=== PATIENT | male | born 1955 | race Caucasian/White ===

== ENCOUNTER → 2024-01-04 11:35 | Outpatient (BNVA) | payer MEDICARE, SELFPAY | PROVIDERS: Referring Provider Family Medicine; Visit Provider Internal Medicine Cardiovascular Disease | DX: R07.9 Chest pain, unspecified (principal); Z86.79 Personal history of other diseases of the circulatory system; R55 Syncope and collapse; I10 Essential (primary) hypertension; E78.5 Hyperlipidemia, unspecified; I44.7 Left bundle-branch block, unspecified; R94.31 Abnormal electrocardiogram [ECG] [EKG] | CPT/HCPCS: 36415; 80048; 83880; 93005; 99205 ==

== ENCOUNTER 2024-01-24 10:23 | Outpatient (CLI) | payer MEDICARE, OTHER, SELFPAY ==
[2024-01-24 11:11] LABS: Anion Gap 18.5 (5-19); Blood Urea Nitrogen 12 mg/dL (8-23); Calcium 9.2 mg/dL (8.5-10.5); Carbon Dioxide 23 mmol/L (22-29); Chloride 103 mmol/L (98-107); Glomerular Filtration Rate 74.3 mL/min (90-130); Glucose 274 mg/dL (65-115); NT Pro B Type Natriuretic Pept 1039 pg/mL (0-125); Osmolality Calculated 300 mOsm/kg (285-295); Potassium 4.5 mmol/L (3.5-5.1); Sodium 140 mmol/L (136-145)
== END 2024-01-24 10:24 | disposition home or self-care (01) ==
LOC: LAB 10:28
PROVIDERS: PCP Family Medicine; Visit Provider Internal Medicine Cardiovascular Disease
DX: I25.10 Atherosclerotic heart disease of native coronary artery without angina pectoris (principal); Z86.79 Personal history of other diseases of the circulatory system; I10 Essential (primary) hypertension
CPT/HCPCS: 36415; 80048; 83880

== ENCOUNTER 2024-01-26 09:45 | Outpatient (CLI) | payer MEDICARE, OTHER, SELFPAY ==
--- NOTE | 2024-01-26 10:30 | USCV_ITS ---
Leon Mendez Age: 68 Gender: M : 1955 Exam Date: 01/26/2024 10:18 Ordering Phys: Estevan Barrera MD ([email or web address]) Technologist: Gabriel Carter Exam Location: [facility] [place] Indication: cardiomyopathy BP: 120 / 70 HR: 63 Rhythm: Sinus Technical Quality: Adequate MEASUREMENTS (Male / Female) Normal Values 2D ECHO LV Diastolic Diameter PLAX 6.4 cm 4.2 - 5.9 / 3.9 - 5.3 cm IVS Diastolic Thickness 1.2 cm 0.6 - 1.0 / 0.6 - 0.9 cm IVS Systolic Thickness 1.5 cm LVPW Diastolic Thickness 1.7 cm 0.6 - 1.0 / 0.6 - 0.9 cm LVPW Systolic Thickness 1.9 cm LV Ejection Fraction 2D Teich 36.9 % LV Ejection Fraction MOD 4C 39.3 % LV Ejection Fraction MOD 2C 24.2 % LV Ejection Fraction 2C AL 26.1 % LA Diameter 4.4 cm RA Systolic Volume 4C AL 22.7 ml RA Systolic Volume 4C MOD 22.6 ml LA Sys Volume AL 61.9 cm cubed LA Sys Volume Index AL 28.8 cm cubed/m squared Aorta at Sinotubular Diameter 2.1 cm IVC Diameter 1.9 cm M-MODE LA Ao Ratio MM 1.2 AV Cusp Separation MM 2.2 cm DOPPLER AV Peak Velocity 130.7 cm/s LVOT Peak Velocity 76.0 cm/s MV Peak Velocity 100.0 cm/s MV Area PHT 6.3 cm squared Mitral E to A Ratio 1.0 PV Peak Velocity 74.0 cm/s RV Ejection Time 0.3 s FINDINGS Left Ventricle Left ventricle is dilated. LV systolic function has severely reduced with EF of 25 to 30%. Severe global hypokinesis. Grade 1 diastolic dysfunction. Right Ventricle Normal in size and function Right Atrium Normal in size Left Atrium Normal in size Mitral Valve Mitral valve is thickened. Trace mitral regurgitation. Aortic Valve Aortic valve is thickened. No significant stenosis Tricuspid Valve Insufficient TR jet to evaluate RVSP. Pulmonic Valve Trace pulmonic regurgitation Pericardium Normal Aorta Normal in size IVC Not well visualized CONCLUSIONS Left ventricle is dilated. LV systolic function is severely reduced with EF of 25 to 30%. Grade 1 diastolic dysfunction Trace mitral regurgitation Trace pulmonary regurgitation No comparison studies are available. Mau Irene MD (Electronically Signed) Final Date: 09 February 2024 21:29 S
== END 2024-01-26 09:46 | disposition home or self-care (01) ==
LOC: RAD 09:46
PROVIDERS: PCP Family Medicine; Visit Provider Internal Medicine Cardiovascular Disease
DX: I50.20 Unspecified systolic (congestive) heart failure (principal); I50.30 Unspecified diastolic (congestive) heart failure; I34.81 Nonrheumatic mitral (valve) annulus calcification; I35.0 Nonrheumatic aortic (valve) stenosis; I51.89 Other ill-defined heart diseases; R06.09 Other forms of dyspnea
CPT/HCPCS: 93306

== ENCOUNTER → 2024-03-21 10:02 | Outpatient (BNVA) | payer MEDICARE, OTHER, SELFPAY | PROVIDERS: PCP Family Medicine; Visit Provider Nurse Practitioner Family | DX: I50.22 Chronic systolic (congestive) heart failure (principal) | CPT/HCPCS: 99213 ==

== ENCOUNTER → 2024-04-10 09:29 | Outpatient (BNVA) | payer MEDICARE, OTHER, SELFPAY | PROVIDERS: PCP Family Medicine; Visit Provider Internal Medicine Cardiovascular Disease | DX: I25.10 Atherosclerotic heart disease of native coronary artery without angina pectoris (principal); I10 Essential (primary) hypertension; E78.5 Hyperlipidemia, unspecified; I42.9 Cardiomyopathy, unspecified | CPT/HCPCS: 99214 ==

== ENCOUNTER 2024-04-17 08:35 | Inpatient (IN) | payer MEDICARE, OTHER, SELFPAY ==
[2024-04-17] VITALS (21 sets, daily range): BP systolic 113–155; BP diastolic 65–88; PULSE 61–76; RESP 14–25; TEMP 36.4–36.8; O2SAT 93–100; BMI 27.8; BMI 26.8
--- NOTE | 2024-04-17 08:44 | XRR_ITS ---
PROCEDURE INFORMATION: Exam: XR Chest Exam date and time: 04/17/2024 8:48 AM Age: 68 years old Clinical indication: Shortness of breath; Additional info: Weakness TECHNIQUE: Imaging protocol: Radiologic exam of the chest. Views: 1 view. COMPARISON: No relevant prior studies available. FINDINGS: Lungs: Unremarkable. No consolidation. Pleural spaces: Unremarkable. No pleural effusion. No pneumothorax. Heart/Mediastinum: Unremarkable. No cardiomegaly. Bones/joints: Unremarkable. XR/XR chest 1V portable [id number] IMPRESSION: No acute findings.
--- NOTE | 2024-04-17 08:44 | W.ED.DIZZY ---
HPI - Dizziness General: Chief Complaint: Weakness Stated Complaint: DIZZY, WEAKNESS Time Seen by Provider: 04/17/24 08:37 History of Present Illness: HPI Narrative: 68-year-old male presents emergency planing dizziness weakness burning in his chest began while he was sitting he had not done anything active. He has a history of a left bundle branch block no known history of coronary artery disease does have some reported congestive heart failure. He states he got very dizzy and weak. Patient is diabetic blood sugar at the scene was 314 he recently stopped metformin and started Farxiga. During exam he was noted to have increased lightheadedness dizziness when he sat up. He has not had any episodes of vomiting he has no true vertigo. Associated symptoms: Reports chest pain; Denies chills Related Data Home Medications Medication Instructions Recorded Confirmed aspirin 81 mg tablet,delayed 81 mg PO DAILY 01/04/24 04/17/24 release metoprolol succinate 25 mg 25 mg PO DAILY 01/04/24 04/17/24 tablet,extended release 24 hr tamsulosin 0.4 mg capsule 0.4 mg PO DAILY 01/04/24 04/17/24 dapagliflozin propanediol 5 mg 5 mg PO DAILY 03/21/24 04/17/24 tablet (Farxiga) evolocumab 140 mg/mL subcutaneous 1 mg SUBCUT Q14D 04/17/24 04/17/24 pen injector (Vaibhav Crane) lisinopril 2.5 mg tablet 2.5 mg PO DAILY 04/17/24 04/17/24 omeprazole 40 mg capsule,delayed 40 mg PO DAILY 04/17/24 04/17/24 release Previous Rx's Medication Instructions Recorded spironolactone 25 mg tablet 25 mg PO DAILY #30 tabs 02/20/24 sacubitril 24 mg-valsartan 26 mg 1 tab PO BID #60 tabs 03/04/24 tablet (Entresto) valsartan 40 mg tablet 40 mg PO DAILY till yuou get the 04/12/24 entresto. dont Stop lisinopril #30 tabs Allergies Allergy/AdvReac Type Severity Reaction Status Date / Time No Known Allergies Allergy Verified 03/21/24 10:26 Review of Systems Const: Denies: fever(s) or chills Card: Reports: chest pain; Denies: edema or swelling of feet/ankles Resp: Denies: dyspnea GI: Denies: abdominal pain : Denies: dysuria, urinary frequency or urinary urgency Musc: Denies: neck pain or back pain Skin/Breast: Denies: rash Neuro: Reports: dizziness [facility] PFSH: Medical History Systolic CHF 01/26/2024: LVEF 25 to 30% Family History Mother Congestive heart failure (CHF) Other Diabetes mellitus type 1 Heart disease Denies family history of CAD (coronary artery disease) Anemia Aneurysm Arrhythmia Hyperlipidemia Congenital heart disease Carotid artery disease Hypertension Cardiomyopathy Social History Smoking and tobacco/nicotine status: never used tobacco/nicotine Physical Exam Const: GENERAL APPEARANCE: cooperative ORIENTATION/CONSCIOUSNESS: Yes awake, Yes oriented to person, Yes oriented to place and Yes oriented to time HENMT: COMMON NORMALS: normocephalic, atraumatic and hearing grossly normal bilaterally HEAD & SCALP: normocephalic and atraumatic Resp: COMMON NORMALS: normal respiratory effort, No retractions, No use of accessory muscles and clear to auscultation bilaterally AUSCULTATION: clear to auscultation bilaterally Cardio: COMMON NORMALS: regular rate, regular rhythm and No murmurs present (Cardio) RATE: regular rate RHYTHM: regular rhythm GI: COMMON NORMALS: Soft to palpation and No hepatosplenomegaly present AUSCULTATION: Yes normoactive bowel sounds PALPATION: Yes Soft to palpation, No Tenderness to palpation present (GI), No Guarding due to palpation present (GI) and Yes No hepatosplenomegaly present Extremity: COMMON NORMALS: normal to inspection, capillary refill normal, no clubbing, cyanosis or edema, no calf tenderness and no pedal edema Neuro: SENSORIUM/ORIENTATION: Yes oriented to person, Yes oriented to place and Yes oriented to time Skin: COMMON NORMALS: no rashes or lesions noted GENERAL SKIN EXAM: no rashes or lesions noted Course Vital Signs: Vital signs: Vital Signs Temperature 97.6 F 04/17/24 08:37 Pulse Rate 68 04/17/24 15:21 Respiratory Rate 14 04/17/24 13:00 Blood Pressure 154/88 04/17/24 15:21 Pulse Oximetry 96 04/17/24 15:21 Oxygen Delivery Me thod Room Air 04/17/24 08:37 MDM - Dizziness Medical Decision Making Patient's blood pressure is elevated in first arrived. He has pretty significant global hypokinesis he was switching from MEME inhibitor to anastrozole. He had a slight bump in his troponin. We consulted hospitalist and surgical oncologist. Initially after evaluating cardiology had thought possibly treating him as an outpatient. After further discussion with the hospitalist will place patient on observation and adjust medications follow out troponins. Discussed Dr. Peacock orders written Medical Records I reviewed the patient's medical records. Lab Data I reviewed the patient's lab results. 04/17/24 10:08 04/17/24 10:08 Radiology Impressions Chest X-Ray 04/17/24 08:44 IMPRESSION: No acute findings. Laboratory Results WBC 8.01 10^3/uL (3.29-11.43) 04/17/24 10:08 RBC 4.88 10^6/uL (3.85-5.65) 04/17/24 10:08 Hgb 14.50 g/dL (11.27-16.99) 04/17/24 10:08 Hct 43.7 % (37-53) 04/17/24 10:08 MCV 89.5 fl (82-101) 04/17/24 10:08 MCH 29.7 pg (27-33) 04/17/24 10:08 MCHC 33.2 g/dL (30-55) 04/17/24 10:08 RDW 12.3 % (12.1-15.1) 04/17/24 10:08 Plt Count 195 10^3/cmm (157-399) 04/17/24 10:08 MPV 12.2 fL (7.4-10.4) H 04/17/24 10:08 Neut % (Auto) 66.5 % 04/17/24 10:08 Lymph % (Auto) 24.7 % 04/17/24 10:08 [place] % (Auto) 7.2 % 04/17/24 10:08 Eos % (Auto) 0.7 % 04/17/24 10:08 Baso % (Auto) 0.5 % 04/17/24 10:08 Neut # (Auto) 5.32 10^3/uL (1.8-7.7) 04/17/24 10:08 Lymph # (Auto) 2.0 10^3/uL (0.8-4.8) 04/17/24 10:08 [place] # (Auto) 0.6 10^3/uL (0.2-0.9) 04/17/24 10:08 Eos # (Auto) 0.1 10^3/uL (0.0-0.8) 04/17/24 10:08 Baso # (Auto) 0.0 10^3/uL (0.0-0.1) 04/17/24 10:08 Nucleated RBC % (auto) 0 % 04/17/24 10:08 Nucleated RBCs # 0.0 /100WBC 04/17/24 10:08 D-Dimer 1.28 ug/mLFEU (0-0.59) H 04/17/24 10:08 Sodium 136 mmol/L (136-145) 04/17/24 10:08 Potassium 4.2 mmol/L (3.5-5.1) 04/17/24 10:08 Chloride 101 mmol/L (98-107) 04/17/24 10:08 Carbon Dioxide 23 mmol/L (22-29) 04/17/24 10:08 Anion Gap 16.2 (5-19) 04/17/24 10:08 BUN 15 mg/dL (8-23) 04/17/24 10:08 Creatinine 0.9 mg/dL (0.7-1.2) 04/17/24 10:08 GFR Calculation 83.9 mL/min (90-130) L 04/17/24 10:08 Glucose 177 mg/dL (65-115) H 04/17/24 10:08 Calculated Osmolality 287 mOsm/kg (285-295) 04/17/24 10:08 Calcium 9.0 mg/dL (8.5-10.5) 04/17/24 10:08 Total Bilirubin 0.6 mg/dL (0.15-1.2) 04/17/24 10:08 AST 15 U/L (0-40) 04/17/24 10:08 ALT 25 U/L (0-41) 04/17/24 10:08 Alkaline Phosphatase 82 U/L (40-130) 04/17/24 10:08 Troponin T Baseline 23 ng/L (0-15) H 04/17/24 10:08 Troponin T 120 Minute 28.29 ng/L (0-15) H 04/17/24 12:14 Delta Troponin T 5.29 ABS# (0-10) 04/17/24 12:14 Total Protein 6.6 g/dL (6.6-8.7) 04/17/24 10:08 Albumin 4.3 g/dL (3.5-5.2) 04/17/24 10:08 Globulin 2.3 g/dL (1.3-4.6) 04/17/24 10:08 Procalcitonin 0.05 ng/mL (0-0.5) 04/17/24 10:08 Urine Color Yellow (Yellow) 04/17/24 10:20 Urine Appearance Clear (CLEAR) 04/17/24 10:20 Urine pH 7.0 (5-7) 04/17/24 10:20 Ur Specific [place] 1.024 (1.005-1.030) 04/17/24 10:20 Urine Protein Negative (Negative) 04/17/24 10:20 Urine Glucose (UA) 3+ (Normal) H 04/17/24 10:20 Urine Ketones Negative (Negative) 04/17/24 10:20 Urine Blood Negative (Negative) 04/17/24 10:20 Urine Nitrate Negative (Negative) 04/17/24 10:20 Urine Bilirubin Negative (Negative) 04/17/24 10:20 Urine Urobilinogen 0.2 mg/dL (Negative) 04/17/24 10:20 Ur Leukocyte Esterase Negative (Negative) 04/17/24 10:20 Amorphous Sediment Not Reportable 04/17/24 10:20 All radiology interpretation(s) finalized by discharge Discharge Plan Discharge Patient Disposition: Admitted As Inpatient Admit Provider: Lucio Peacock Clinical Impression: Unstable angina, Systolic CHF, History of ischemic cardiomyopathy, Hypertension Condition: Stable Coding Level of Care Code ED [employer] Operator for Thais Delaney
--- NOTE | 2024-04-17 08:47 | ECG_ITS ---
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 Measurements Intervals [place] Rate: 73 P: 21 [place]: 167 QRS: 28 QRSD: 157 T: 204 QT: 438 QTc: 485 Interpretive Statements SINUS RHYTHM WITH OCCASIONAL VENTRICULAR PREMATURE COMPLEXES Compared to ECG 01/04/2024 11:39:09 Ventricular premature complex(es) now present Electronically Signed On 04-17-2024 16:57:48 CDT by Spencer Borjas M.D. [id number]
[2024-04-17 10:28] LABS: Add Urine Microscopic? NO
[2024-04-17 10:34] LABS: Bilirubin Urine Negative (Negative); Blood Urine Negative (Negative); Glucose Urine UA 3+ (Normal); Ketones Urine Negative (Negative); Leukocyte Esterase Urine Negative (Negative); Nitrate Urine Negative (Negative); Protein Urine Negative (Negative); Specific Gravity, Urine 1.024 (1.005-1.030); Urine Appearance Clear (CLEAR); Urine Color Yellow (Yellow); Urobilinogen Urine 0.2 mg/dL (Negative)
[2024-04-17 10:36] LABS: Add Urine Culture? No; Charge for UA Resulting for Rev
[2024-04-17 10:50] LABS: Basophils % 0.5 %; Eosinophils # 0.1 10^3/uL (0.0-0.8); Eosinophils % 0.7 %; Hematocrit 43.7 % (37-53); Lymphocytes % 24.7 %; Mean Corpuscular HGB Conc 33.2 g/dL (30-55); Mean Corpuscular Hemoglobin 29.7 pg (27-33); Mean Corpuscular Volume 89.5 fl (82-101); Mean Platelet Volume 12.2 fL (7.4-10.4); Monocytes # 0.6 10^3/uL (0.2-0.9); Monocytes % 7.2 %; Neutrophils # 5.32 10^3/uL (1.8-7.7); Neutrophils % 66.5 %; Nucleated Red Blood Cells % 0 %; Platelet Count 195 10^3/cmm (157-399); Red Blood Count 4.88 10^6/uL (3.85-5.65); Red Cell Distribution Width 12.3 % (12.1-15.1); White Blood Count 8.01 10^3/uL (3.29-11.43)
--- NOTE | 2024-04-17 10:52 | ECG_ITS ---
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 Measurements Intervals [place] Rate: 66 P: 12 [place]: 175 QRS: 7 QRSD: 158 T: 190 QT: 463 QTc: 487 Interpretive Statements SINUS RHYTHM POSSIBLE LEFT ATRIAL ENLARGEMENT [-0.1mV P-WAVE IN V1/V2] LEFT BUNDLE BRANCH BLOCK [120+ ms QRS DURATION, 80+ ms Q/S IN V1/V2, 85+ ms R IN I/aVL/V5/V6] Compared to ECG 04/17/2024 08:47:01 Ventricular premature complex(es) no longer present Electronically Signed On 04-17-2024 17:02:53 CDT by Spencer Borjas M.D. [id number]
[2024-04-17 11:13] LABS: Alanine Aminotransferase 25 U/L (0-41); Albumin Level 4.3 g/dL (3.5-5.2); Alkaline Phosphatase 82 U/L (40-130); Anion Gap 16.2 (5-19); Aspartate Amino Transferase 15 U/L (0-40); Blood Urea Nitrogen 15 mg/dL (8-23); Carbon Dioxide 23 mmol/L (22-29); Chloride 101 mmol/L (98-107); Creatinine Clr Calc Pharmacy 90.5191; Globulin 2.3 g/dL (1.3-4.6); Glomerular Filtration Rate 83.9 mL/min (90-130); Glucose 177 mg/dL (65-115); Osmolality Calculated 287 mOsm/kg (285-295); Potassium 4.2 mmol/L (3.5-5.1); Sodium 136 mmol/L (136-145); Total Bilirubin 0.6 mg/dL (0.15-1.2); Total Protein 6.6 g/dL (6.6-8.7); Troponin(5th) Baseline 23 ng/L (0-15)
[2024-04-17 13:02] LABS: Troponin 5 2HR 28.29 ng/L (0-15); Troponin 5 2HR Delta 5.29 ABS# (0-10)
--- NOTE | 2024-04-17 14:00 | P.HP_ITS ---
Providers/Chief Complaint 2 Primary Care Provider: Elvin Romero MD Chief Complaint: DIZZY, WEAKNESS History of Present Illness Leon Mendez is a 68 year old male with past medical history of ischemic cardiomyopathy with EF 25 to 30%, CAD with concerns for silent [place] in the past, last cardiac angiogram 2 years ago at outside hospital with the possibility of ARTIST COLOR SEPARATION with collaterals to one of the blood vessels(records from out side is not currently available) who follows up with Dr. Barrera presents to the ER today because of retrosternal burning chest pain which lasted for 30 minutes prior to arrival to the ER. Symptoms are not associated with nausea, vomiting, nonradiating associated with mild diaphoresis. After the patient he was being transition from lisinopril to Entresto and yesterday was the first day he did not take his lisinopril. On arrival to the ER his blood pressure was found to be slightly elevated up to 150 systolics, delta troponin of 5 in 2 hours. Cardiology was consulted and medicine was requested for admission with concerns for non-ST elevation [place]. Review of Systems 2 General: Reports: 10 or more systems reviewed and unremarkable except in HPI and below Const: Denies: fever(s), chills, body aches, change in appetite, change in weight, malaise, night sweats, diaphoresis, change in sleep pattern, daytime sleepiness or snoring Eyes: Denies: change in vision, blurry vision, photophobia, eye discomfort or eye discharge ENMT: Denies: throat pain, enlarged tonsils, hoarseness, mouth pain, oral sores, dry mouth, tinnitus, nasal congestion or post nasal drip Card: Denies: chest pain, palpitations, irregular heart rhythm, edema, swelling of feet/ankles, lightheadedness, syncope, pre-syncope, dyspnea on exertion, orthopnea, leg pain with exertion or acrocyanosis Resp: Denies: dyspnea, productive cough, non-productive cough, wheezing, stridor, pain on inspiration, change in phlegm color, hemoptysis or chest congestion GI: Denies: abdominal pain, nausea, vomiting, hematemesis, coffee ground emesis, dysphagia, heartburn, diarrhea, constipation, bloating, GI cramping, change in bowel habits, pain on defecation, hematochezia or melena : Denies: flank pain, difficulty urinating, dysuria, urinary frequency, urinary urgency, urinary hesitancy, urinary dribbling, difficulty starting urination, change in urine stream, nocturia or hematuria Musc: Denies: neck pain, back pain, extremity pain, joint pain, joint swelling, joint redness, joint stiffness or limited range of motion Neuro: Denies: headache(s), numbness in extremities, weakness in extremities, sensory changes, lack of coordination, difficulty walking, frequent falls, dizziness, vertigo, confusion, Slurred speech present, difficulty communicating thoughts or seizure-like activity Psych: Denies: anxiety, depression, mood swings, panic attacks, hopelessness or irritability Endo: Denies: polyuria, polydipsia, tired all the time, cold intolerance, excessive sweating, flushing or heat intolerance [place]/Lymph: Denies: easy bruising or easy bleeding All/Imm: Denies: tongue swelling, facial swelling or acute wheezing Medications/Allergies Home Medications Medication Instructions Recorded Confirmed Last Taken Type aspirin 81 mg tablet,delayed 81 mg PO DAILY 01/04/24 04/17/24 Unknown History release metoprolol succinate 25 mg 25 mg PO DAILY 01/04/24 04/17/24 Unknown History tablet,extended release 24 hr tamsulosin 0.4 mg capsule 0.4 mg PO DAILY 01/04/24 04/17/24 Unknown History spironolactone 25 mg tablet 25 mg PO DAILY #30 tabs 02/20/24 04/17/24 Unknown Rx sacubitril 24 mg-valsartan 26 mg 1 tab PO BID #60 tabs 03/04/24 04/17/24 Unknown Rx tablet (Entresto) dapagliflozin propanediol 5 mg 5 mg PO DAILY 03/21/24 04/17/24 Unknown History tablet (Farxiga) valsartan 40 mg tablet 40 mg PO DAILY till yuou get the 04/12/24 04/17/24 Unknown Rx entresto. dont Stop lisinopril #30 tabs evolocumab 140 mg/mL subcutaneous 1 mg SUBCUT Q14D 04/17/24 04/17/24 Unknown History pen injector (Vaibhav Crane) lisinopril 2.5 mg tablet 2.5 mg PO DAILY 04/17/24 04/17/24 Unknown History omeprazole 40 mg capsule,delayed 40 mg PO DAILY 04/17/24 04/17/24 Unknown History release Allergies Allergy/AdvReac Type Severity Reaction Status Date / Time No Known Allergies Allergy Verified 03/21/24 10:26 PFSH Acute 2 PFSH: Medical History Systolic CHF 01/26/2024: LVEF 25 to 30% Family History Mother Congestive heart failure (CHF) Other Diabetes mellitus type 1 Heart disease Denies family history of CAD (coronary artery disease) Anemia Aneurysm Arrhythmia Hyperlipidemia Congenital heart disease Carotid artery disease Hypertension Cardiomyopathy Social History Smoking and tobacco/nicotine status: never used tobacco/nicotine Vitals/I&O/Wt Last Vital Signs Temp 97.6 F 04/17/24 08:37 Pulse 68 04/17/24 12:00 Resp 20 H 04/17/24 12:00 BP 136/82 04/17/24 12:00 Pulse Ox 97 04/17/24 12:00 O2 Del Method Room Air 04/17/24 08:37 Weight last 48 hrs Weight 90.718 kg Physical Exam 2 Narrative: General: No acute distress, AO x3 HEENT: PERRLA, pupils bilaterally equal and reactive Chest: Normal vesicular breath sounds, no added sounds, equal good air entry bilaterally CVS: S1-S2 regular, no murmurs, no tachycardia, no gallops, no rubs Abdomen: Soft, nontender, no organomegaly, bowel sounds present Neuro: No focal deficits, no facial deformity, AO x3, power 5/5 in all limbs Data 04/17/24 10:08 04/17/24 10:08 A&P Assessment and plan (1) Unstable angina: Monitor for chest pain. Concerns for atypical chest pain. Cycle troponin. Continue with aspirin, statin. Check A1c, lipid panel. Last echocardiogram from January 2024 showed an EF of 2530% with grade 1 diastolic dysfunction with trace MR. Appreciate cardiology recommendations. No plan for cardiac angiogram or heparin drip for now. (2) History of ischemic cardiomyopathy: Last echocardiogram as above. No clinical symptoms of congestive heart failure for now. Continue with home dose of metoprolol, spironolactone. Was recently told by his outpatient access control specialist to hold lisinopril for 3 days and transition over to Entresto. As per cardiology team can restart MEME inhibitor while being in the hospital at current dose and transition over to Entresto once available to him as an outpatient without waiting for 3 days as his blood pressures is on the higher side and his creatinine is stable at 1. (3) Systolic CHF: Qualifiers: Heart failure chronicity: chronic Qualified Code(s): I50.22 - Chronic systolic (congestive) heart failure (4) Atherosclerosis of coronary artery of [place] heart without angina pectoris: Qualifiers: Coronary Disease-Associated Artery/Lesion type: [place] artery Qualified Code(s): I25.10 - Atherosclerotic heart disease of [place] coronary artery without angina pectoris (5) Hypertension: Goal blood pressure less than 140/90 mmHg. Continue with home dose of metoprolol, spironolactone, MEME inhibitor. Will uptitrate as for goal blood pressure. Qualifiers: Hypertension type: primary hypertension Qualified Code(s): I10 - Essential (primary) hypertension Plan Type 2 diabetes mellitus: Check A1c. Hold off on home dose of Farxiga. Insulin sliding scale low-dose protocol. Full code Cardiac carb consistent diet Protonix OPD prophylaxis Heparin 5000 every 12 hourly for DVT prophylaxis Attestations 2 Medical Necessity Statement*: Admit under observation for management and evaluation for chest pain in a patient with history of CAD, ischemic cardiomyopathy with a EF of 30% Diagnoses Unstable angina I20.0 History of ischemic cardiomyopathy Z86.79 Chronic systolic congestive heart failure I50.22 Heart failure chronicity: chronic Atherosclerosis of [place] coronary artery of [place] heart without angina pectoris I25.10 Coronary Disease-Associated Artery/Lesion type: [place] artery Primary hypertension I10 Hypertension type: primary hypertension
[2024-04-17 14:26] LABS: Procalcitonin 0.05 ng/mL (0-0.5)
[2024-04-17 14:27] LABS: D Dimer 1.28 ug/mLFEU (0-0.59)
--- NOTE | 2024-04-17 14:44 | ECG_ITS ---
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 Measurements Intervals [place] Rate: 55 P: 19 [place]: 174 QRS: 17 QRSD: 162 T: 206 QT: 472 QTc: 455 Interpretive Statements SINUS BRADYCARDIA POSSIBLE LEFT ATRIAL ENLARGEMENT [-0.1mV P-WAVE IN V1/V2] LEFT BUNDLE BRANCH BLOCK [120+ ms QRS DURATION, 80+ ms Q/S IN V1/V2, 85+ ms R IN I/aVL/V5/V6] Compared to ECG 04/17/2024 10:52:05 No change Electronically Signed On 04-17-2024 17:02:21 CDT by Spencer Borjas M.D. [email or web address]
--- NOTE | 2024-04-17 14:54 | P.CONIM_ITS ---
Providers/Reason For Consult 2 Consulting Physician/Specialty*: Cardiology/Dr. Borjas Reason for Consult*: Elevated blood pressure, chest pain, minimally elevated troponin Requesting Physician: Dr. Timmons Attending Physician: Lucio Peacock MD Primary Care Provider: Elvin Romero MD History of Present Illness History of Present Illness Leon Mendez is a 68 year old male with a known history of hypertension, known left bundle branch block and low LVEF 30% with global hypokinesis, presented to the ER with onset of dizziness, with vague chest pain in the setting of markedly elevated blood pressure. Patient was in the process of switching his antihypertensive medication from lisinopril to Entresto. He stopped lisinopril for couple of days and has not taken the Entresto yet. This led to markedly elevated blood pressure systolic 180-190, and as a result he felt a dizziness, weakness and some vague chest pain. On arrival to the ER his blood pressure was markedly elevated 190/105. EKG showed old left bundle branch block. The cardiac troponin enzymes are minimally elevated. Currently he is a chest pain-free. He is resting comfortably. No shortness of air. Blood pressure is now better after medication. Currently his blood pressure is 145/94. Clinically no signs symptoms suggestive of heart failure. Reviewed his lab data, normal creatinine. Review of Systems 2 Narrative: Detailed 10 point systemic review unremarkable except for as mentioned above in the history of present illness. He has a decent exercise tolerance. Medications/Allergies Home Medications Medication Instructions Recorded Confirmed Last Taken Type aspirin 81 mg tablet,delayed 81 mg PO DAILY 01/04/24 04/17/24 Unknown History release metoprolol succinate 25 mg 25 mg PO DAILY 01/04/24 04/17/24 Unknown History tablet,extended release 24 hr tamsulosin 0.4 mg capsule 0.4 mg PO DAILY 01/04/24 04/17/24 Unknown History spironolactone 25 mg tablet 25 mg PO DAILY #30 tabs 02/20/24 04/17/24 Unknown Rx sacubitril 24 mg-valsartan 26 mg 1 tab PO BID #60 tabs 03/04/24 04/17/24 Unknown Rx tablet (Entresto) dapagliflozin propanediol 5 mg 5 mg PO DAILY 03/21/24 04/17/24 Unknown History tablet (Farxiga) valsartan 40 mg tablet 40 mg PO DAILY till yuou get the 04/12/24 04/17/24 Unknown Rx entresto. dont Stop lisinopril #30 tabs evolocumab 140 mg/mL subcutaneous 1 mg SUBCUT Q14D 04/17/24 04/17/24 Unknown History pen injector (Vaibhav Crane) lisinopril 2.5 mg tablet 2.5 mg PO DAILY 04/17/24 04/17/24 Unknown History omeprazole 40 mg capsule,delayed 40 mg PO DAILY 04/17/24 04/17/24 Unknown History release Allergies Allergy/AdvReac Type Severity Reaction Status Date / Time No Known Allergies Allergy Verified 03/21/24 10:26 PFSH Acute 2 PFSH: Medical History Systolic CHF 01/26/2024: LVEF 25 to 30% Family History Mother Congestive heart failure (CHF) Other Diabetes mellitus type 1 Heart disease Denies family history of CAD (coronary artery disease) Anemia Aneurysm Arrhythmia Hyperlipidemia Congenital heart disease Carotid artery disease Hypertension Cardiomyopathy Social History Smoking and tobacco/nicotine status: never used tobacco/nicotine Vitals/I&O/Wt Last Vital Signs Temp 97.6 F 04/17/24 08:37 Pulse 74 04/17/24 13:00 Resp 14 04/17/24 13:00 BP 144/81 04/17/24 13:30 Pulse Ox 98 04/17/24 13:00 O2 Del Method Room Air 04/17/24 08:37 Weight last 48 hrs Weight 200 lb Physical Exam 2 Narrative: Patient laying comfortably. No respiratory distress. Const: COMMON NORMALS: no acute distress, average body habitus, patient oriented x3 and alert HENMT: COMMON NORMALS: normocephalic HEAD & SCALP: normocephalic OTHER: Unremarkable. Chest: COMMONS NORMALS: normal inspection of the chest and normal palpation of entire chest wall OTHER: Unremarkable. Resp: OTHER: Good air entry bilaterally. No added sounds. Cardio: OTHER: Normal first and second heart sounds. No added sounds. No JVD. GI: OTHER: Abdominal soft nontender. Bowel sounds audible. Extremity: OTHER: Normal lower extremities. No pedal edema. Distal pulses palpable. Neuro: COMMON NORMALS: patient oriented x3 SENSORIUM/ORIENTATION: Yes alert OTHER: Grossly intact. Skin: OTHER: Skin warm and dry. Data 04/17/24 10:08 04/17/24 10:08 A&P Assessment and plan (1) Hypertension: 68-year-old male patient with a known hypertension, cardiomyopathy LVEF of 25 to 30% presented with symptomatic elevated blood pressure. Clinically no angina. The vague chest pain symptoms and dizziness were related to markedly elevated blood pressure. Clinically no heart failure symptoms. He is euvolemic. The minimally elevated cardiac troponin is as a result of known cardiomyopathy and markedly elevated blood pressure. Clinically it is less likely to be acute MO. Plan: Restart his routine medication including antihypertensive. Patient was recently advised to start Entresto for cardiomyopathy which he has not yet. Recommend to start on Entresto from today. Patient can be observed overnight in the hospital after starting the medication. If he remains stable he can be discharged today with plan of follow-up with Dr. 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 Qualifiers: Hypertension type: primary hypertension Qualified Code(s): I10 - Essential (primary) hypertension (2) Systolic CHF: Qualifiers: Heart failure chronicity: chronic Qualified Code(s): I50.22 - Chronic systolic (congestive) heart failure Coding Level of Care Code 20024 Diagnoses Primary hypertension I10 Hypertension type: primary hypertension Chronic systolic congestive heart failure I50.22 Heart failure chronicity: chronic Time Spent (min) 20
[2024-04-17 15:48] LABS: Iron 105 ug/dL (59-158); Percent Saturation 36.9 % (20-50); Total Iron Binding Capacity 284 mcg/dl; Unsaturated Iron Binding 179 ug/dL (112-347)
[2024-04-17] MEDS: heparin 5,000 unit/mL INJ 1 mL 5000 UNIT SUBCUT (15:51)
[2024-04-17] MEDS: lisinopril 2.5 mg Tablet PO (16:23)
[2024-04-17 16:30] LABS: Vitamin B12 237 pg/mL (232-1245)
[2024-04-17 17:07] LABS: Glucose Point of Care 204 mg/dL (70-110)
--- NOTE | 2024-04-17 17:20 | PC.NURSE ---
admitted in to room 111-2 from er at 1520.report received.pt is alert and oriented x 4.denies pain or dizziness at present.sr on monitor.oriented to room environment.instructed to notify staff for any sob,dizziness,pain...or for any concerns at all.pt verb understanding of instructions
[2024-04-17 17:33] LABS: Troponin 5 6HR 28.86 ng/L (0-15); Troponin 5 6HR Delta 5.86 ng/L (0-12)
[2024-04-17] MEDS: insulin lispro 100 unit/1 mL SUBCUT ×2 (17:58→20:43)
[2024-04-17 19:39] LABS: Add Urine Microscopic? NO
[2024-04-17 19:42] LABS: Bilirubin Urine Negative (Negative); Blood Urine Negative (Negative); Glucose Urine UA 3+ (Normal); Ketones Urine 1+ (Negative); Leukocyte Esterase Urine Negative (Negative); Nitrate Urine Negative (Negative); Protein Urine Negative (Negative); Urine Appearance Clear (CLEAR); Urine Color Yellow (Yellow); Urobilinogen Urine 0.2 mg/dL (Negative); pH Urine 5.5 (5-7)
[2024-04-17 19:43] LABS: Specific Gravity, Urine 1.031 (1.005-1.030)
[2024-04-17 19:44] LABS: Add Urine Culture? No; Charge for UA Resulting for Rev
[2024-04-17 20:25] LABS: Glucose Point of Care 214 mg/dL (70-110)
[2024-04-18] VITALS (9 sets, daily range): BP systolic 116–155; BP diastolic 54–90; PULSE 19–84; RESP 16–20; TEMP 36.4–36.9; O2SAT 92–98
[2024-04-18 03:52] LABS: Basophils % 0.8 %; Eosinophils # 0.1 10^3/uL (0.0-0.8); Eosinophils % 2.3 %; Hematocrit 44.1 % (37-53); Lymphocytes # 2.9 10^3/uL (0.8-4.8); Lymphocytes % 55.7 %; Mean Corpuscular HGB Conc 32.9 g/dL (30-55); Mean Corpuscular Volume 91.1 fl (82-101); Mean Platelet Volume 11.6 fL (7.4-10.4); Monocytes # 0.5 10^3/uL (0.2-0.9); Monocytes % 8.6 %; Neutrophils # 1.68 10^3/uL (1.8-7.7); Neutrophils % 32.2 %; Nucleated Red Blood Cells % 0 %; Platelet Count 185 10^3/cmm (157-399); Red Blood Count 4.84 10^6/uL (3.85-5.65); Red Cell Distribution Width 12.5 % (12.1-15.1); White Blood Count 5.22 10^3/uL (3.29-11.43)
[2024-04-18 04:06] LABS: Estmated Average Glucose 214; Hemoglobin A1C 9.1 % (4.0-6.0)
[2024-04-18 04:28] LABS: Folate Level 11.7 ng/mL (4.5-32.2)
[2024-04-18 04:30] LABS: Alanine Aminotransferase 20 U/L (0-41); Albumin Level 3.9 g/dL (3.5-5.2); Alkaline Phosphatase 74 U/L (40-130); Anion Gap 14.2 (5-19); Aspartate Amino Transferase 15 U/L (0-40); Blood Urea Nitrogen 15 mg/dL (8-23); Calcium 8.5 mg/dL (8.5-10.5); Carbon Dioxide 25 mmol/L (22-29); Chloride 103 mmol/L (98-107); Globulin 2.6 g/dL (1.3-4.6); Glomerular Filtration Rate 74.3 mL/min (90-130); Glucose 149 mg/dL (65-115); Magnesium 2.1 mg/dL (1.7-2.3); Osmolality Calculated 290 mOsm/kg (285-295); Phosphorus 4.8 mg/dL (2.5-4.5); Potassium 4.2 mmol/L (3.5-5.1); Sodium 138 mmol/L (136-145); Total Bilirubin 0.5 mg/dL (0.15-1.2); Total Protein 6.5 g/dL (6.6-8.7)
[2024-04-18 04:36] LABS: Chol HDL Ratio 3.37 mg/dL (1.0-5.00); Cholesterol 118 mg/dL (0-200); HDL Cholesterol 35 mg/dL (60-100); LDL Cholesterol Calculated 47 mg/dL (50-129); LDL HDL Ratio 1.34 RATIO (0.00-3.22); Procalcitonin 0.04 ng/mL (0-0.5); Triglycerides 181 mg/dL (0-150)
[2024-04-18 06:18] LABS: Glucose Point of Care 144 mg/dL (70-110)
[2024-04-18] MEDS: spironolactone 25 mg Tablet PO (08:25)
[2024-04-18] MEDS: lisinopril 2.5 mg Tablet PO (08:25)
[2024-04-18] MEDS: aspirin 81 mg EC Tablet PO (08:25)
[2024-04-18] MEDS: metoprolol succinate ER (24 HR) 25 mg Tablet PO (08:25)
[2024-04-18] MEDS: tamsulosin 0.4 mg Capsule PO (08:25)
[2024-04-18] MEDS: pantoprazole DR 40 mg Tablet PO (08:26)
[2024-04-18] MEDS: insulin lispro 100 unit/1 mL SUBCUT (08:31)
[2024-04-18 12:29] LABS: Glucose Point of Care 98 mg/dL (70-110)
[2024-04-18 12:29] LABS: Glucose Point of Care 130 mg/dL (70-110)
--- NOTE | 2024-04-18 12:58 | PC.NURSE ---
pt is getting restless and agitated of waiting on doctors Pt came out of the nurses station and said, if doctors are not here yet,i will check out myself. Called hospitalist Dr. Pritchett and he walking in pt's room now.
--- NOTE | 2024-04-18 13:27 | PC.NURSE ---
provided pt with an Entresto coupons and brochure
--- NOTE | 2024-04-18 14:30 | PC.NURSE ---
Discharge Note Patient discharged to home via accompanied by family. Discharge instructions reviewed with patient and/or patient intake representative. Educated pt on entresto s/e vs benefits, chf, chest pain stoplight, importance of checking bp and keeping a log and ff-up with his doctors outpt and [facility] medications and/or prescriptions provided. Belongings/home medications returned.
--- NOTE | 2024-04-21 10:51 | P.SS_ITS ---
Short Stay Summary Providers Date of Admit/Discharge: 04/21/24 Attending Provider: Lucio Peacock MD Primary Care Provider: Elvin Romero MD Chief Complaint: DIZZY, WEAKNESS HPI History of Present Illness Leon Mendez is a 68 year old male with past medical history of ischemic cardiomyopathy with EF 25 to 30%, CAD with concerns for silent PA in the past, last cardiac angiogram 2 years ago at outside hospital with the possibility of BINDER FIXER with collaterals to one of the blood vessels(records from out side is not currently available) who follows up with Dr. Barrera presents to the ER today because of retrosternal burning chest pain which lasted for 30 minutes prior to arrival to the ER. He denies other associated symptoms including nausea, vomiting, diarrhea, radicular pain through the left upper extremity. Patient reports that he is currently being transition to Entresto, and he was told to stop taking his lisinopril. On arrival to the ER his blood pressure was found to be slightly elevated up to 150 systolics, delta troponin of 5 in 2 hours. Cardiology was consulted and medicine was requested for admission with concerns for non-ST elevation PA. Review of Systems General: Reports: 10 or more systems reviewed and unremarkable except in HPI and below Home Meds/Allergies Home Medications and Allergies Home Medications Medication Instructions Recorded Confirmed Type aspirin 81 mg tablet,delayed 81 mg PO DAILY 01/04/24 04/17/24 History release metoprolol succinate 25 mg 25 mg PO DAILY 01/04/24 04/17/24 History tablet,extended release 24 hr tamsulosin 0.4 mg capsule 0.4 mg PO DAILY 01/04/24 04/17/24 History dapagliflozin propanediol 5 mg 5 mg PO DAILY 03/21/24 04/17/24 History tablet (Farxiga) evolocumab 140 mg/mL subcutaneous 1 mg SUBCUT Q14D 04/17/24 04/17/24 History pen injector (Vaibhav Crane) omeprazole 40 mg capsule,delayed 40 mg PO DAILY 04/17/24 04/17/24 History release Allergies Allergy/AdvReac Type Severity Reaction Status Date / Time No Known Allergies Allergy Verified 03/21/24 10:26 PFSH Acute PFSH: Medical History Systolic CHF 01/26/2024: LVEF 25 to 30% Family History Mother Congestive heart failure (CHF) Other Diabetes mellitus type 1 Heart disease Denies family history of CAD (coronary artery disease) Anemia Aneurysm Arrhythmia Hyperlipidemia Congenital heart disease Carotid artery disease Hypertension Cardiomyopathy Social History Smoking and tobacco/nicotine status: never used tobacco/nicotine Vitals/I&O/Wt Last Vital Signs Temp 97.6 F 04/18/24 12:00 Pulse 75 04/18/24 14:21 Resp 20 H 04/18/24 12:00 BP 122/90 04/18/24 14:21 Pulse Ox 93 04/18/24 14:21 O2 Del Method Room Air 04/18/24 12:00 Physical Exam Narrative: General: Cooperative patient in no apparent distress. Well developed. HEENT: Normocephalic, Atraumatic. External ears normal. Nasal passages patent without drainage. MMM. Heart: RRR. Resp: LCTA. No respiratory distress, no use of accessory muscles. Abd: Soft, non-tender. Non-distended. Extremities: No edema. Skin: No rash or lesions on exposed areas. Hospital Course Admission Diagnoses Chest pain, coronary artery disease. Hospital Course Patient was admitted and his blood pressure was treated and reduced. Cardiology was consulted who recommended that he continue on his Entresto. Recommendations for treatment were submitted and patient was started on therapy. His blood pressure improved, and his chest pain resolved prior to discharge. His cardiac workup was negative for acute PA. Patient reports that he was feeling better and he would like to be discharged on day 2 of his hospitalization. He was discharged in stable and improved condition, Entresto sent to his pharmacy with dizziness. He will follow-up with Dr. Barrera. SSS Data Data Completed and Pending: Completed Studies During Hospitalization Category Date Time Status XR chest 1V martine ble [id number] Stat Exams 04/17/24 08:44 Completed Diagnoses at Discharge Discharge Diagnosis (1) Unstable angina: Status: Acute (2) History of ischemic cardiomyopathy: Status: Acute Permanent problem details: Patient refused LifeVest or internal defibrillator (3) Systolic CHF: Status: Acute Qualifiers: Heart failure chronicity: chronic Qualified Code(s): I50.22 - Chronic systolic (congestive) heart failure Permanent problem details: 01/26/2024: LVEF 25 to 30% (4) Atherosclerosis of coronary artery of [place] heart without angina pectoris: Status: Acute Qualifiers: Coronary Disease-Associated Artery/Lesion type: [place] artery Qualified Code(s): I25.10 - Atherosclerotic heart disease of [place] coronary artery without angina pectoris Permanent problem details: Chronic total occlusion of the right coronary artery. No history for intervention. (5) Hypertension: Status: Acute Qualifiers: Hypertension type: primary hypertension Qualified Code(s): I10 - Essential (primary) hypertension Discharge Plan Discharge Patient Disposition: Home Condition: Stable Prescriptions: Continued aspirin 81 mg tablet,delayed release (DR/EC) 81 mg PO DAILY metoprolol succinate 25 mg tablet extended release 24 hr 25 mg PO DAILY tamsulosin 0.4 mg capsule 0.4 mg PO DAILY dapagliflozin propanediol [Farxiga] 5 mg tablet 5 mg PO DAILY omeprazole 40 mg capsule,delayed release(DR/EC) 40 mg PO DAILY Repatha SureClick 140 mg/mL pen injector 1 mg SUBCUT Q14D Entresto 24-26 mg tablet 1 tab PO BID Qty: 60 0RF Discontinued spironolactone 25 mg tablet 25 mg PO DAILY Qty: 30 2RF valsartan 40 mg tablet 40 mg PO DAILY Qty: 30 5RF lisinopril 2.5 mg tablet 2.5 mg PO DAILY Discharge Orders: Discharge Order (Routine); Ordered 04/18/24 Ordered By: Alhaji Pritchett Referrals: Elvin Romero MD [Primary Care Provider] - 04/25/24 11:15 am Pat Blanc FNP [Nurse Practitioner] - 04/30/24 4:00 pm Patient Instructions: Diabetes and Diet, Sacubitril/Valsartan (By mouth), Heart Failure (DC), Heart Healthy Diet (DC), CHF Stoplight, Opioid Safety Attestations Medical Necessity Statement*: Patient was admitted for observation for cardiac workup, and was discharged on day 2 of his hospitalization due to resolution of his chest pain, improvement of his blood pressure, and initiation of ongoing therapy. He will follow-up with Dr. Barrera. Time Spent in Patient Care*: less than 30 min Specific Discharge Activities: Specific discharge activities: educating patient, educating and/or supporting family/caregiver, discussing with pcp/other providers, discussing with case planner/social workers/dc planners, documenting/other paperwork and evaluating patient/reviewing data Quality Metrics Clinical Quality Measures: [ No reported AMI, CVA or VTE this stay ] Coding Level of Care Code Acute Code for Chg Fwd Moderate MDM includes number and complexity of problems actively addressed during encounter, amount and/or complexity of data reviewed/ordered and described risk of complication, morbidity or mortality of management as documented Diagnoses Unstable angina I20.0 History of ischemic cardiomyopathy Z86.79 Chronic systolic congestive heart failure I50.22 Heart failure chronicity: chronic Atherosclerosis of [place] coronary artery of [place] heart without angina pectoris I25.10 Coronary Disease-Associated Artery/Lesion type: [place] artery Primary hypertension I10 Hypertension type: primary hypertension
== END 2024-04-18 14:21 | disposition home or self-care (01) | DRG 313 ==
LOC: ER 09:51 → CSU 14:30
PROVIDERS: Admitting Provider Student in an Organized Health Care Education/Training Program; Emergency Provider Family Medicine; PCP Family Medicine; Visit Provider Student in an Organized Health Care Education/Training Program
DX: R07.89 Other chest pain (principal); I50.22 Chronic systolic (congestive) heart failure; I11.0 Hypertensive heart disease with heart failure; I25.5 Ischemic cardiomyopathy; I25.10 Atherosclerotic heart disease of native coronary artery without angina pectoris; E11.9 Type 2 diabetes mellitus without complications; I44.7 Left bundle-branch block, unspecified; Z79.82 Long term (current) use of aspirin; Z79.4 Long term (current) use of insulin
CPT/HCPCS: 36415; 36416; 71045; 80053; 80061; 81003; 82607; 82746; 82962; 83036; 83540; 83550; 83735; 84100; 84145; 84443; 84484; 85025; 85378; 93005; 94664; 96372; 99285; A9270; J1644; J1815

== ENCOUNTER → 2024-04-30 15:30 | Outpatient (BNVA) | payer MEDICARE, OTHER, SELFPAY | PROVIDERS: PCP Family Medicine; Visit Provider Internal Medicine Cardiovascular Disease | DX: I25.10 Atherosclerotic heart disease of native coronary artery without angina pectoris (principal); I11.0 Hypertensive heart disease with heart failure; I50.22 Chronic systolic (congestive) heart failure; Z86.79 Personal history of other diseases of the circulatory system; I10 Essential (primary) hypertension; E78.5 Hyperlipidemia, unspecified | CPT/HCPCS: 99214 ==

== ENCOUNTER → 2024-05-31 10:36 | Outpatient (BNVA) | payer MEDICARE, OTHER, SELFPAY | PROVIDERS: PCP Family Medicine; Visit Provider Nurse Practitioner Family | DX: I11.0 Hypertensive heart disease with heart failure (principal); I50.22 Chronic systolic (congestive) heart failure | CPT/HCPCS: 36415; 80048; 99214 ==

== ENCOUNTER → 2024-09-19 08:56 | Outpatient (BNVA) | payer MEDICARE, OTHER, SELFPAY | PROVIDERS: PCP Family Medicine; Visit Provider Student in an Organized Health Care Education/Training Program | DX: Z12.11 Encounter for screening for malignant neoplasm of colon (principal) | CPT/HCPCS: 99024; 99204 ==

== ENCOUNTER → 2024-12-04 09:23 | Outpatient (BNVA) | payer MEDICARE, OTHER, SELFPAY | PROVIDERS: PCP Family Medicine; Visit Provider Internal Medicine Cardiovascular Disease | DX: I25.10 Atherosclerotic heart disease of native coronary artery without angina pectoris (principal); I11.0 Hypertensive heart disease with heart failure; I50.22 Chronic systolic (congestive) heart failure; E78.5 Hyperlipidemia, unspecified; Z79.82 Long term (current) use of aspirin; Z86.79 Personal history of other diseases of the circulatory system; I42.9 Cardiomyopathy, unspecified | CPT/HCPCS: 99214 ==

== ENCOUNTER 2025-01-14 06:44 | Outpatient (CLI) | payer MEDICARE, OTHER, SELFPAY ==
--- NOTE | 2025-01-14 07:00 | USCV_ITS ---
Leon Mendez Age: 69 Gender: M : 1955 Exam Date: 01/14/2025 07:05 Ordering Phys: Estevan Barrera MD ([email or web address]) Technologist: WILD [place] [facility] [place]: lv function BP: / HR: Rhythm: Sinus Technical Quality: Adequate MEASUREMENTS (Male / Female) Normal Values 2D ECHO LV Diastolic Diameter PLAX 5.0 cm 4.2 - 5.9 / 3.9 - 5.3 cm IVS Diastolic Thickness 1.3 cm 0.6 - 1.0 / 0.6 - 0.9 cm IVS Systolic Thickness 1.5 cm LVPW Diastolic Thickness 1.5 cm 0.6 - 1.0 / 0.6 - 0.9 cm LVPW Systolic Thickness 1.7 cm LVOT Diameter 2.0 cm LV Ejection Fraction 2D Teich 13.7 % LV Ejection Fraction MOD 4C 31.2 % LV Ejection Fraction MOD 2C 22.7 % LV Ejection Fraction 2C AL 24.5 % LA Diameter 4.3 cm RA Systolic Volume 4C AL 37.3 ml RA Systolic Volume 4C MOD 33.4 ml Aorta at Sinotubular Diameter 3.0 cm M-MODE LA Ao Ratio MM 1.2 AV Cusp Separation MM 2.0 cm FINDINGS Left Ventricle Severe diffuse hypokinesis of the left ventricle with an ejection fraction of around 25%. Mildly dilated LV cavity Right Ventricle Appears to be of normal size ejection fraction. Right Atrium Possibly of normal size. Left Atrium Appears to be upper limit of normal size. Mitral Valve Thickened mitral valve. Mild mitral annular calcification. Aortic Valve Thickened aortic valve. Tricuspid Valve No gross morphological abnormalities noted Pulmonic Valve No gross abnormalities noted Pericardium No pericardial effusion. Aorta Normal aortic annulus size. IVC Inferior vena cava not visualized. CONCLUSIONS Severe diffuse hypokinesis of the left ventricle with an ejection fraction of around 25%. Mildly dilated LV cavity. Left atrium, upper limit of normal size. Thickened aortic valve. Thickened mitral valve. Mild mitral annular calcification. There is no pericardial effusion. There are no intracardiac masses. Compared to the study from 01/26/2024, there may not be a significant change Dr Estevan Barrera MD [facility] (Electronically Signed) Final Date: 20 January 2025 07:49 S
== END 2025-01-14 06:45 | disposition home or self-care (01) ==
LOC: RAD 06:44
PROVIDERS: PCP Family Medicine; Visit Provider Internal Medicine Cardiovascular Disease
DX: I42.0 Dilated cardiomyopathy (principal); I50.23 Acute on chronic systolic (congestive) heart failure; I35.0 Nonrheumatic aortic (valve) stenosis; I34.0 Nonrheumatic mitral (valve) insufficiency; I34.81 Nonrheumatic mitral (valve) annulus calcification
CPT/HCPCS: 93308